=== PATIENT | male | born 1960 | race Caucasian/White ===

== ENCOUNTER → 2017-09-23 | Outpatient (CLI) | payer OTHER ==
[~2017-09-23] MED LIST: CYCL10 PO; LISI20 PO
[2017-09-23 10:03] LABS: Hematocrit 44.1 % (37.0-53.0); Hemoglobin 14.9 g/dL (13.5-17.5); Mean Corpuscular HGB 31.6 pg (26.0-34.0); Mean Corpuscular HGB Conc 33.8 g/dL (31.5-36.5); Mean Corpuscular Volume 93 fL (80-100); Mean Platelet Volume 10.2 fL (9.1-12.4); Platelet Count 212 K/mm3 (150-400); RDW Coefficient Variation 12.3 % (11.7-14.2); RDW Standard Deviation 42.5 fL (35.1-46.3); Red Blood Cell Count 4.72 M/mm3 (4.30-5.90); White Blood Cell Count 6.29 K/mm3 (4.00-11.30)
[2017-09-23 11:30] LABS: Alanine Aminotransfer (ALT/SGP 42 U/L (12-78); Albumin/Globulin Ratio 1.5 (0.8-1.8); Alk Phos 67 U/L (40-126); Anion Gap 8 mmol/L (6-16); Aspartate Aminotrans (AST/SGOT 22 U/L (12-37); Bilirubin, Total 0.9 mg/dL (0.1-1.0); Blood Urea Nitrogen 18 mg/dL (8-24); Bun/Creatinine Ratio 21.4 (12.0-20.0); CHOL/HDL RATIO 3.9; CO2, Blood 29 mmol/L (21-32); Calcium, Blood 9.2 mg/dL (8.5-10.1); Chloride, Blood 105 mmol/L (98-108); Cholesterol 235 mg/dL (50-200); Creatinine, Blood 0.84 mg/dL (0.60-1.20); Globulin, Blood 2.7 g/dL (2.2-4.0); Glomerular Filtration Rate >60 (60-); Glucose, Blood 105 mg/dL (70-99); HDL Cholesterol 60 mg/dL (>39); LDL/HDL RATIO 2.7; Low Density Lipoprotein Chol 162 mg/dL (<110); Potassium, Blood 4.7 mmol/L (3.5-5.5); Sodium, Blood 142 mmol/L (136-145); Total Protein, Blood 6.7 g/dL (6.4-8.2); Triglycerides 66 mg/dL (30-160); Very Low Density Lipoprot Chol 13 mg/dL (6-32)
== END | disposition home or self-care (01) ==
LOC: LAB EV 09:20
PROVIDERS: Family Medicine
DX: E78.5 Hyperlipidemia, unspecified (principal); I10 Essential (primary) hypertension; R73.01 Impaired fasting glucose
CPT/HCPCS: 80053; 80061; 83036; 85027

== ENCOUNTER 2022-01-25 08:05 | Day surgery (SDC) | payer OTHER ==
[~2022-01-25] VITALS: Ht 180.3 cm; Wt 82.2 kg
[2022-01-25] MEDS ORDERED: METO25ER PO (09:00)
[2022-01-25] MEDS ORDERED: FLOMAX0.4 MG (09:02)
--- NOTE | 2022-01-25 10:44 | NUR ---
01/25/22 1044 SHIRLEY OLIVEIRA LIDOCAINE 1% WITH EPINEPHRINE 0.3ML MIXED TO CREATE A LOCAL SOLUTION OF LIDOCAINE 1% WITH EPI 1:100,000. 10MLS OF LOCAL INJECTED BY DR. LIND INTO L SHOULDER AT BEGINNING OF CASE. 1MG OF EPINEPHRINE ADDED TO 3 BAGS OF 3000ML OF LR FOR IRRIGATION.
--- NOTE | 2022-01-25 12:07 | NUR ---
01/25/22 1207 MARY ANN BERNSTEIN PT UP IN CHAIR DRINKING WATER [place] AT BEDSIDE, RN EDUCATING ON POLAR PK
== END 2022-01-25 12:30 | disposition home or self-care (01) ==
LOC: ORSCSDS 08:05
PROVIDERS: Orthopaedic Surgery
PROC: 0MQ Bursae and Ligaments, Repair (ICD-10-PCS; principal; 2022-01-25 09:30)
PROC: 0LQ24ZZ Repair Left Shoulder Tendon, Percutaneous Endoscopic Approach (ICD-10-PCS; principal; 2022-01-25 09:30)
PROC: 0RNK4ZZ Release Left Shoulder Joint, Percutaneous Endoscopic Approach (ICD-10-PCS; principal; 2022-01-25 09:30)
DX: S46.002A Unspecified injury of muscle(s) and tendon(s) of the rotator cuff of left shoulder, initial encounter (principal); M75.122 Complete rotator cuff tear or rupture of left shoulder, not specified as traumatic; M75.22 Bicipital tendinitis, left shoulder; M75.42 Impingement syndrome of left shoulder; M19.012 Primary osteoarthritis, left shoulder; G47.33 Obstructive sleep apnea (adult) (pediatric); I10 Essential (primary) hypertension; E78.00 Pure hypercholesterolemia, unspecified; Z79.899 Other long term (current) drug therapy
CPT/HCPCS: C1713; C9781; J0171; J1100; J2250; J2370; J2405; J2704; J3010; J7120

== ENCOUNTER 2022-02-15 18:49 | Emergency (ER) | payer OTHER ==
[~2022-02-15] VITALS: Ht 177.8 cm; Wt 82.5 kg
[~2022-02-15 18:49] MED LIST changes: +FLOMAX0.4 MG; +METO25ER PO
[2022-02-15] MEDS ORDERED: DUTASTERIDE0.5 M3 PO (19:56)
[2022-02-15] MEDS ORDERED: ELIQUIS5 M2 PO (21:03)
== END 2022-02-15 21:16 | disposition home or self-care (01) ==
LOC: ER 18:49
DX: I82.412 Acute embolism and thrombosis of left femoral vein (principal); I82.432 Acute embolism and thrombosis of left popliteal vein; I82.4Z2 Acute embolism and thrombosis of unspecified deep veins of left distal lower extremity; I10 Essential (primary) hypertension; Z88.0 Allergy status to penicillin; Z88.1 Allergy status to other antibiotic agents; Z91.018 Allergy to other foods; Z79.899 Other long term (current) drug therapy
CPT/HCPCS: 93971; A9270

== ENCOUNTER 2023-02-28 06:17 | Day surgery (SDC) | payer BC ==
[~2023-02-28] VITALS: Ht 180.3 cm; Wt 84.4 kg
[~2023-02-28 06:17] MED LIST changes: +ALLERCLEAR10 MG PO; +BANOPHEN50 MG PO; +DUTASTERIDE0.5 M3 PO; +ELIQUIS5 M2 PO; +LOSA25 PO; +TAMS.4ER PO
--- NOTE | 2023-02-28 06:40 | NUR ---
02/28/23 0640 Leigh Emmanuel CALL LIGHT WITHIN REACH. TETRACAINE IN LEFT EYE AT 0635 AND PLEDGETT IN AT 0636
[2023-02-28 08:01] VITALS: BP 117/76
--- NOTE | 2023-02-28 08:15 | NUR ---
02/28/23 0815 Johnny Cash IV REMOVED INTACT. SITE WNL.
== END 2023-02-28 08:14 | disposition home or self-care (01) ==
LOC: ORSCSDS 06:17
PROVIDERS: Student in an Organized Health Care Education/Training Program
PROC: 08DK3ZZ Extraction of Left Lens, Percutaneous Approach (ICD-10-PCS; principal; 2023-02-28 07:30)
DX: H25.13 Age-related nuclear cataract, bilateral (principal); H21.81 Floppy iris syndrome; H18.603 Keratoconus, unspecified, bilateral; I10 Essential (primary) hypertension; E78.5 Hyperlipidemia, unspecified; G47.33 Obstructive sleep apnea (adult) (pediatric); Z79.899 Other long term (current) drug therapy
CPT/HCPCS: J1100; J2250; J2405; J3010; J7040; V2632

== ENCOUNTER 2025-04-16 18:50 | Emergency (ER) | payer BC ==
[~2025-04-16] VITALS: Ht 177.8 cm; Wt 81.7 kg
[2025-04-16 19:01] VITALS: BP 149/94
== END 2025-04-16 21:55 | disposition home or self-care (01) ==
LOC: ER 18:50
DX: S61.210A Laceration without foreign body of right index finger without damage to nail, initial encounter (principal); I10 Essential (primary) hypertension; Z23 Encounter for immunization; Z88.0 Allergy status to penicillin; Z88.1 Allergy status to other antibiotic agents; Z91.018 Allergy to other foods; Z79.899 Other long term (current) drug therapy; W27.0XXA Contact with workbench tool, initial encounter
CPT/HCPCS: 12001; 73140; 90471; 90715; 99282-25